=== PATIENT | male | born 1990 | race Caucasian/White ===

== ENCOUNTER 2021-05-08 11:02 | Emergency (ER) | payer OTHER, SELFPAY ==
[2021-05-08 11:14] VITALS: BP 99/65; PULSE 60; RESP 20; TEMP 37.1; O2SAT 98
--- NOTE | 2021-05-08 12:15 | ED.URI ---
HPI - URI/Sore Throat General Chief Complaint: Upper Respiratory Infection Stated Complaint: sore throat congestion arm pain Time Seen by Provider: 05/08/21 12:01 Source: patient and RN notes reviewed Mode of arrival: ambulatory Limitations: no limitations History of Present Illness HPI Narrative: Patient presents today complaint of a 2-day history of sore throat and cough. Denies congestion, rhinorrhea, fever, headache, nausea, vomiting. Currently rates his pain 5/10 and has been taking ibuprofen without relief. Denies contacts. He has not had a COVID-19 vaccine. MD elicited complaint: cough and sore throat Related Data Home Medications Medication Instructions Recorded Confirmed No Home Medications 05/08/21 05/08/21 Allergies Allergy/AdvReac Type Severity Reaction Status Date / Time No Known Allergies Allergy Verified 05/08/21 11:39 Review of Systems Review of Systems: CONSTITUTIONAL: Denies body aches, fever, chills, or sweats. EYES: Denies visual changes, redness, or discharge. ENT: Denies rhinorrhea, congestion,or otalgia.+ Sore throat CARDIOVASCULAR: Denies chest pain, palpitations, or edema. RESPIRATORY: Denies dyspnea.+ Cough GASTROINTESTINAL: Denies abdominal pain, nausea, vomiting, or diarrhea. GENITOURINARY: Denies dysuria or hematuria. SKIN: Denies rash, itching, or wounds. MUSCULOSKELETAL: Denies back pain, joint pain, or myalgia. NEUROLOGIC: Denies headache, numbness, tingling, or weakness. PSYCH: Denies depression or anxiety. [facility] Past Medical History Medical History (Updated 05/08/21 @ 12:22 by Radha Hoffman, [facility], ) Mild developmental delay Stroke Surgical History Surgical History (Updated 05/08/21 @ 12:18 by Radha Hoffman, [facility], ) History of fundoplication History of tracheostomy Comments At time of signature, I have reviewed and agree with nursing past medical, surgical, social and family history unless otherwise noted. Please see nursing chart for further information. There is no relevant family history pertinent to the presenting complaint Exam Narrative: GENERAL: Well-appearing, well-nourished, and in no acute distress. HEAD: Normocephalic, atraumatic. EYES: EOMI. No redness or drainage. Conjunctivae normal. ENT: Mucous membranes pink and moist. Nares clear. No rhinorrhea. TMs normal bilaterally. Throat normal. Uvula midline. Gross dental decay. NECK: Normal AROM. Supple. No lymphadenopathy. CHEST: No respiratory distress. Clear to auscultation. HEART: Regular rate and rhythm. No murmur appreciated. Normal peripheral pulses. EXTREMITIES: Normal range of motion. No edema. SKIN: Warm, dry, no rash. Capillary refill normal. Normal skin turgor. NEURO: No focal deficits. Alert and oriented x3. Gait steady. PSYCH: Normal affect. No signs of depression or anxiety. Course Vital Signs Vital signs: Vital Signs Temperature 98.8 F 05/08/21 11:14 Pulse Rate 60 05/08/21 11:14 Respiratory Rate 20 05/08/21 11:14 Blood Pressure 99/65 L 05/08/21 11:14 Pulse Oximetry 98 05/08/21 11:14 Temperature 98.8 F 05/08/21 11:14 Pulse Rate 60 05/08/21 11:14 Respiratory Rate 20 05/08/21 11:14 Blood Pressure 99/65 L 05/08/21 11:14 Pulse Oximetry 98 05/08/21 11:14 Reviewed MDM - URI/Sore Throat Differential Diagnosis Differential diagnosis: Likely upper respiratory infection, sinusitis, viral infection, pharyngitis and other (Strep throat, COVID-19) Lab Data Attestation: I reviewed the patient's lab results. Labs: Strep Screen Presumptive Negative *(Reference Range: Negative)* Critical Care Time Critical Care Time Critical Care Time: No Discharge Plan Discharge Clinical Impression: Upper respiratory infection Qualifiers: URI type: unspecified URI Qualified Code(s): J06.9 - Acute upper respiratory infection, unspecified Patient Disposition: Home, Self-Care Condit
[2021-05-09 18:08] LABS: SARS-CoV-2 RNA PCR Negative
== END 2021-05-08 12:25 | disposition home or self-care (01) ==
PROVIDERS: Emergency Provider Nurse Practitioner
DX: J06.9 Acute upper respiratory infection, unspecified (principal); Z20.822 Contact with and (suspected) exposure to COVID-19
CPT/HCPCS: 87081; 87880; 99213; C9803; G0463; U0003; U0005

== ENCOUNTER 2022-03-28 16:37 | Emergency (ER) | payer OTHER, SELFPAY ==
[2022-03-28 16:42] VITALS: BP 115/70; PULSE 80; RESP 18; TEMP 37.2; O2SAT 98
--- NOTE | 2022-03-28 16:48 | ED.DENTAL ---
HPI - Dental/Oral General Chief complaint: Dental/Oral Stated complaint: Infection in Jaw Time Seen by Provider: 03/28/22 16:48 Source: patient, family and RN notes reviewed History of Present Illness HPI Narrative: Patient is a 31-year-old male who presents the urgent care with complaints of lower right dental pain. Patient states it started a couple days ago and he has been taking ibuprofen. Father states that he has had a rough go with his oral health care. States that he is getting him on his dental insurance in May and he will be following up with an oral surgeon. Denies of any nausea, vomiting or fever. No other acute complaints. No acute distress noted. Father and patient aware of the plan of care. Some parts of this dictation were generated by voice recognition software and may contain typographical and/or grammatical inaccuracies. Related Data Allergies Allergy/AdvReac Type Severity Reaction Status Date / Time No Known Allergies Allergy Verified 05/08/21 11:39 Review of Systems Review of Systems: CONSTITUTIONAL: Denies fever, chills, or sweats. EYES: Denies visual changes, redness, or discharge. ENT: Denies rhinorrhea, congestion, sore throat, or otalgia. Reports of lower right dental pain and swelling CARDIOVASCULAR: Denies chest pain, palpitations, or edema. RESPIRATORY: Denies cough or dyspnea. GASTROINTESTINAL: Denies abdominal pain, nausea, vomiting, or diarrhea. GENITOURINARY: Denies dysuria or hematuria. SKIN: Denies rash or itching. MUSCULOSKELETAL: Denies back pain, joint pain, or myalgia. NEUROLOGIC: Denies headache, numbness, or weakness. All other systems reviewed are negative, except as documented in HPI. PMFSH Past Medical History Medical History (Updated 03/28/22 @ 17:02 by JACK Best) Mild developmental delay Stroke Surgical History Surgical History (Updated 05/08/21 @ 12:18 by Radha Hoffman, JACK, ) History of fundoplication History of tracheostomy Comments At the time of my signature, I reviewed and agree with the nursing past medical, surgical, social, and family history. There is no relevant family history pertinent to the patient complaint. Exam Narrative: GENERAL: This is a well-nourished, well-developed patient, in no apparent distress. HEAD: normocephalic, atraumatic. EYES: PERRL. Sclera clear/white. Vision is grossly intact. EARS: External ears normal, auditory canals clear and without drainage, TMs normal without perforation. Hearing grossly intact. NOSE: External nose normal with no obvious nasal discharge, nares without redness, no rhinorrhea. DENTAL: Multiple carious lesions, avulsed dentition, gingivitis and periodontal disease throughout. Moderate edema and erythema noted to the right lower quadrant, foul smell THROAT: Mucous membranes moist, posterior pharynx clear. Moderate secretions NECK: Neck supple, non-tender without lymphadenopathy CARDIOVASCULAR: Regular rate and rhythm without murmurs, gallops, or rubs. RESPIRATORY: Clear to auscultation. Breath sounds equal bilaterally. No wheezes, rales, or rhonchi. SKIN: warm, intact with no suspicious lesions or rash, good texture and turgor. NEURO: awake, alert, and oriented to person, place and time. There were no obvious focal neurologic abnormalities. EXTREMITIES: No clubbing, cyanosis, or edema. Course Course Level of Care: Express Care Visit Vital Signs Vital signs: Vital Signs Temperature 99 F 03/28/22 16:42 Pulse Rate 80 03/28/22 16:42 Respiratory Rate 18 03/28/22 16:42 Blood Pressure 115/70 03/28/22 16:42 Pulse Oximetry 98 03/28/22 16:42 Oxygen Delivery Room Air 03/28/22 16:42 Temperature 99 F 03/28/22 16:42 Pulse Rate 80 03/28/22 16:42 Respiratory Rate 18 03/28/22 16:42 Blood Pressure 115/70 03/28/22 16:42 Pulse Oximetry 98 03/28/22 16:42 Oxygen Delivery Room Air 03/28/22 16:42 Reviewed MDM - Dental/Oral MDM Narrative Medical dec
== END 2022-03-28 17:07 | disposition home or self-care (01) ==
PROVIDERS: Emergency Provider Nurse Practitioner Family
DX: K04.7 Periapical abscess without sinus (principal); K02.9 Dental caries, unspecified; A69.1 Other Vincent's infections; R62.50 Unspecified lack of expected normal physiological development in childhood; Z86.73 Personal history of transient ischemic attack (TIA), and cerebral infarction without residual deficits
CPT/HCPCS: 99213; G0463